=== PATIENT | female | born 1940 | race Caucasian/White ===

== ENCOUNTER 2016-10-27 08:00 | Outpatient (CLI) | payer MEDICARE | END 2016-10-27 08:01 | disposition home or self-care (01) | DX: Z00.00 Encounter for general adult medical examination without abnormal findings (principal); E55.9 Vitamin D deficiency, unspecified; I10 Essential (primary) hypertension; E78.2 Mixed hyperlipidemia; Z79.899 Other long term (current) drug therapy ==

== ENCOUNTER 2016-11-30 13:23 | Outpatient (CLI) | payer MEDICARE | END 2016-11-30 13:24 | disposition home or self-care (01) | DX: E87.6 Hypokalemia (principal); Z79.899 Other long term (current) drug therapy ==

== ENCOUNTER 2016-12-26 13:23 | Outpatient (CLI) | payer MEDICARE | END 2016-12-26 13:24 | disposition home or self-care (01) | DX: E87.6 Hypokalemia (principal); Z79.899 Other long term (current) drug therapy ==

== ENCOUNTER 2017-02-14 06:04 | Day surgery (SDC) | payer MEDICARE ==
[2017-02-14] MEDS ORDERED: LACTATED RINGERS 1,000 ML IV ONE (06:58)
[2017-02-14] MEDS ORDERED: fentaNYL 100 MCG/2 ML VIAL IVP ONE (07:28)
[2017-02-14] MEDS ORDERED: MIDAZOLAM 2 MG/2 ML VIAL IVP ONE (07:28)
[2017-02-14 10:07] VITALS: BP 122/59
== END 2017-02-14 06:05 | disposition home or self-care (01) ==
LOC: SDS 06:04
PROVIDERS: ATTEND Surgery
PROC: 0DBN8ZX Excision of Sigmoid Colon, Via Natural or Artificial Opening Endoscopic, Diagnostic (ICD-10-PCS; 2017-02-14)
PROC: 0DBH8ZX Excision of Cecum, Via Natural or Artificial Opening Endoscopic, Diagnostic (ICD-10-PCS; principal; 2017-02-14 07:30)
DX: R19.5 Other fecal abnormalities (principal); K63.89 Other specified diseases of intestine; D12.0 Benign neoplasm of cecum; K64.8 Other hemorrhoids; I10 Essential (primary) hypertension; Z95.2 Presence of prosthetic heart valve; I48.91 Unspecified atrial fibrillation; Z79.01 Long term (current) use of anticoagulants; Z79.52 Long term (current) use of systemic steroids; Z98.84 Bariatric surgery status; Z88.2 Allergy status to sulfonamides
CPT/HCPCS: 45380; J7120; 88305

== ENCOUNTER 2017-07-20 10:22 | Outpatient (CLI) | payer MEDICARE ==
[2017-07-20 15:42] LABS: ALBUMIN/GLOBULIN RATIO 1.2 (1.0-2.2); BILIRUBIN,TOTAL 0.4 mg/dL (0.2-1.0); CREATININE 0.8 mg/dL (0.4-1.0); POTASSIUM 3.5 mmol/L (3.5-5.0); TOTAL PROTEIN 7.3 g/dL (6.7-8.2)
== END 2017-07-20 10:23 | disposition home or self-care (01) ==
LOC: LAB.R 10:22
PROVIDERS: ATTEND Physician Assistant Medical
DX: Z79.899 Other long term (current) drug therapy (principal)
CPT/HCPCS: 80053

== ENCOUNTER 2018-02-05 08:00 | Outpatient (CLI) | payer MEDICARE ==
[2018-02-05 15:52] LABS: BASOPHILS # (AUTO) 0.1 10^3/uL (0.0-0.1); BASOPHILS % (AUTO) 1.1 %; EOSINOPHILS # (AUTO) 0.2 10^3/uL (0.0-0.7); EOSINOPHILS % (AUTO) 3.7 %; HGB - HEMOGLOBIN 13.6 g/dL (12.0-16.0); LYMPHOCYTES # (AUTO) 0.8 10^3/uL (1.5-3.5); LYMPHOCYTES % (AUTO) 14.5 %; MEAN CORPUSCULAR HEMOGLOBIN 30.6 pg (27.0-31.0); MEAN CORPUSCULAR HGB CONC 33.7 g/dL (32.0-36.0); MEAN CORPUSCULAR VOLUME 90.7 fL (81.0-99.0); MEAN PLATELET VOLUME 9.1 fL (7.9-10.8); MONOCYTES # (AUTO) 0.4 10^3/uL (0.0-1.0); MONOCYTES % (AUTO) 6.8 %; NEUTROPHILS % (AUTO) 73.9 %; PLT - PLATELET COUNT 160 10^3/uL (130-450); RED BLOOD COUNT 4.44 10^6/uL (4.20-5.40); RED CELL DISTRIBUTION WIDTH 12.7 % (12.0-15.0); WHITE BLOOD COUNT 5.4 x10^3/uL (4.8-10.8)
[2018-02-05 16:01] LABS: ALBUMIN 4.1 g/dL (3.2-5.5); ALBUMIN/GLOBULIN RATIO 1.2 (1.0-2.2); ALKALINE PHOSPHATASE 59 IU/L (42-121); ALT ALANINE AMINOTRANSFERASE 13 IU/L (10-60); AST ASPARTATE AMINOTRANSFERASE 24 IU/L (10-42); BILIRUBIN,TOTAL 0.9 mg/dL (0.2-1.0); BUN - BLOOD UREA NITROGEN 21 mg/dL (6-20); CALCIUM 9.1 mg/dL (8.5-10.3); CARBON DIOXIDE - CO2 29 mmol/L (21-32); CHLORIDE 100 mmol/L (101-111); CHOL/HDL RATIO 3.6 (<4.4); CHOLESTEROL 170 mg/dL; CREATININE 0.8 mg/dL (0.4-1.0); GFR - MDRD 69 (>89); GLUCOSE 91 mg/dL (70-100); HDL CHOLESTEROL 47 mg/dL; LDL CHOLESTEROL,CALCULATED 93 mg/dL; SODIUM 136 mmol/L (135-145); TOTAL PROTEIN 7.6 g/dL (6.7-8.2); VLDL CHOLESTEROL 30 mg/dL
== END 2018-02-05 08:01 ==
LOC: LAB.R 08:00
PROVIDERS: ATTEND Physician Assistant Medical
DX: Z79.899 Other long term (current) drug therapy (principal); E87.6 Hypokalemia; E55.9 Vitamin D deficiency, unspecified; I48.91 Unspecified atrial fibrillation; E78.2 Mixed hyperlipidemia; I10 Essential (primary) hypertension
CPT/HCPCS: 80053; 80061; 82306; 83721; 84443; 85025

== ENCOUNTER 2018-05-06 14:03 | Outpatient (CLI) | payer MEDICARE ==
--- NOTE | 2018-05-08 10:53 | DEXA Report ---
Procedure Date: 05/06/2018 Accession Number: [id number] / [id number] Procedure: DEX - Dexa Spine and/or Hip CPT Code: FULL RESULT: EXAM: Dexa Forearm, Dexa Spine and/or Hip DATE: 05/06/2018 3:23 PM CLINICAL HISTORY: ASYMPTOMATIC MENOPAUSAL STATE TECHNIQUE: Dual energy x-ray absorptiometry (DXA) was performed on a Genasys System. Regions measured are the AP Spine, femoral neck, and if needed forearm. COMPARISON: None. In accordance with the International Society for Clinical Densitometry (ISCD) guidelines, data from previous exams may be reanalyzed using current recommendations and techniques. This is done to allow a more accurate basis for comparison with the current study. FINDINGS: The data for the hip is as follows: BMD (g/cm/cm) T-SCORE Z-SCORE REGION Neck 0.685 -2.5 -1.0 TOTAL 0.796 -1.7 -0.4 NOTE: The femoral neck or total proximal femur, whichever is lowest, is used for classification. The data for the left forearm is as follows: BMD (g/cm/cm) T-SCORE Z-SCORE REGION 1/3 0.682 -2.2 0.4 NOTE: The 33% radius of the nondominant forearm is used for classification. IMPRESSION: THE WHO CLASSIFICATION BASED ON THE INTERNATIONAL REFERENCE STANDARD IS OSTEOPENIA. THE FRACTURE RISK IS INCREASED. RECOMMENDATION: Patients with diagnosis of osteoporosis or osteopenia should have regular bone mineral density assessment. For those eligible for Medicare, routine testing is allowed once every 2 years. Testing frequency can be increased for patients who have rapidly progressing disease or for those who are receiving medical therapy to restore bone mass. COMMENT: World Health Organization (WHO) definitions for osteoporosis and osteopenia: NORMAL BMD: T-score at -1.0 or higher, fracture risk is low OSTEOPENIA BMD: T-score between -1.0 and -2.5, fracture risk is increased. OSTEOPOROSIS BMD: T-score at -2.5 or lower, fracture risk is high. National Osteoporosis Foundation recommends: 1. Obtain adequate dietary calcium (at least 1200 mg per day) and vitamin D (400-800 international units per day). 2. Participate, as appropriate, in regular weightbearing and muscle-strengthening exercise. 3. Avoid tobacco use and reduce alcohol and caffeine intake. 4. For more detailed information see the website at www.NOF.org.
== END 2018-05-06 14:04 | disposition home or self-care (01) ==
LOC: DI 14:03
PROVIDERS: ATTEND Physician Assistant Medical
DX: M85.89 Other specified disorders of bone density and structure, multiple sites (principal); Z78.0 Asymptomatic menopausal state
CPT/HCPCS: 77080; 77081

== ENCOUNTER 2018-06-11 15:18 | Outpatient (CLI) | payer MEDICARE ==
--- NOTE | 2018-06-12 11:11 | Mammography Report ---
Reason: SCREENING MAMMO Procedure Date: 06/11/2018 Accession Number: [id number] / [id number] Procedure: SCOTT - Screening Mammo Dig Bilat CPT Code: FULL RESULT: EXAM: Screening Mammo Dig Bilat DATE: 06/11/2018 3:48 PM CLINICAL HISTORY: 77-year-old female presents for screening mammogram. TECHNIQUE: Bilateral CC and MLO views were obtained. COMPARISON: 11/16/2015, 10/15/2012, 07/04/2011, 08/16/2009. FINDINGS: The breasts demonstrate scattered fibroglandular densities bilaterally. Typically benign vascular calcifications are seen in the bilateral breasts. No suspicious masses, clustered microcalcifications, or regions of architectural distortion are identified. IMPRESSION: Benign findings RECOMMENDATION: Routine annual screening unless otherwise clinically indicated. BIRADS CATEGORY 2: Benign findings STANDARD QUALIFYING STATEMENTS: 1. This examination was reviewed without the aid of Computer-Aided Detection (CAD). 2. A negative or benign imaging report should not delay biopsy if clinically suspicious findings are present. Consider surgical consultation if warrented. More than 5% of cancers are not identified by imaging. 3. Dense breasts may obscure an underlying neoplasm.
== END 2018-06-11 15:19 | disposition home or self-care (01) ==
LOC: DI 15:18
PROVIDERS: ATTEND Physician Assistant Medical
DX: Z12.31 Encounter for screening mammogram for malignant neoplasm of breast (principal)
CPT/HCPCS: 77067

== ENCOUNTER 2018-06-27 15:27 | Outpatient (CLI) | payer MEDICARE ==
[2018-06-27 20:39] LABS: ALBUMIN 3.9 g/dL (3.2-5.5); ALBUMIN/GLOBULIN RATIO 1.1 (1.0-2.2); BILIRUBIN,TOTAL 0.8 mg/dL (0.2-1.0); CALCIUM 9.1 mg/dL (8.5-10.3); CREATININE 0.8 mg/dL (0.4-1.0); TOTAL PROTEIN 7.5 g/dL (6.7-8.2)
[2018-06-29 13:48] LABS: HEPATITIS B SURFACE ANTIGEN NON-REACTIVE (NON-REACTIVE)
[2018-06-29 14:01] LABS: HEPATITIS C ANTIBODY NON-REACTIVE (NON-REACTIVE)
== END 2018-06-27 15:28 | disposition home or self-care (01) ==
LOC: LAB.R 15:27
PROVIDERS: ATTEND Physician Assistant Medical
DX: Z13.818 Encounter for screening for other digestive system disorders (principal); Z79.899 Other long term (current) drug therapy
CPT/HCPCS: 80053; 86704; 86803; 87340

== ENCOUNTER 2019-02-20 16:40 | Outpatient (CLI) | payer MEDICARE ==
[2019-02-20 17:03] LABS: BASOPHILS % (AUTO) 0.9 %; EOSINOPHILS # (AUTO) 0.1 10^3/uL (0.0-0.7); HGB - HEMOGLOBIN 12.6 g/dL (12.0-16.0); LYMPHOCYTES # (AUTO) 0.7 10^3/uL (1.5-3.5); LYMPHOCYTES % (AUTO) 15.3 %; MEAN CORPUSCULAR HGB CONC 32.3 g/dL (32.0-36.0); MEAN PLATELET VOLUME 7.9 fL (7.9-10.8); MONOCYTES # (AUTO) 0.2 10^3/uL (0.0-1.0); MONOCYTES % (AUTO) 4.4 %; NEUTROPHILS # (AUTO) 3.7 10^3/uL (1.5-6.6); NEUTROPHILS % (AUTO) 77.4 %; PLT - PLATELET COUNT 188 10^3/uL (130-450); RED BLOOD COUNT 4.34 10^6/uL (4.20-5.40); RED CELL DISTRIBUTION WIDTH 13.1 % (12.0-15.0); WHITE BLOOD COUNT 4.8 x10^3/uL (4.8-10.8)
[2019-02-20 17:29] LABS: ALBUMIN 3.9 g/dL (3.2-5.5); ALBUMIN/GLOBULIN RATIO 1.2 (1.0-2.2); ALKALINE PHOSPHATASE 78 IU/L (42-121); ALT ALANINE AMINOTRANSFERASE 12 IU/L (10-60); AST ASPARTATE AMINOTRANSFERASE 20 IU/L (10-42); BILIRUBIN,TOTAL 0.8 mg/dL (0.2-1.0); BUN - BLOOD UREA NITROGEN 16 mg/dL (6-20); CALCIUM 8.8 mg/dL (8.5-10.3); CARBON DIOXIDE - CO2 25 mmol/L (21-32); CHLORIDE 105 mmol/L (101-111); CHOL/HDL RATIO 2.7 (<4.4); CHOLESTEROL 152 mg/dL; CREATININE 0.6 mg/dL (0.4-1.0); GFR - MDRD 96 (>89); GLUCOSE 122 mg/dL (70-100); HDL CHOLESTEROL 56 mg/dL; LDL CHOLESTEROL,CALCULATED 81 mg/dL; LDL/HDL RATIO 1.4 (<4.4); SODIUM 138 mmol/L (135-145); TOTAL PROTEIN 7.2 g/dL (6.7-8.2); VLDL CHOLESTEROL 15 mg/dL
[2019-02-20 18:38] LABS: THYROID STIMULATING HORMONE 0.53 uIU/mL (0.34-5.60)
[2019-02-20 18:40] LABS: FREE T4 (FREE THYROXINE) 0.9 ng/dL (0.58-1.64)
== END 2019-02-20 16:41 | disposition home or self-care (01) ==
LOC: LAB 16:40
PROVIDERS: ATTEND Nurse Practitioner
DX: E87.6 Hypokalemia (principal); E55.9 Vitamin D deficiency, unspecified; I48.91 Unspecified atrial fibrillation; E78.2 Mixed hyperlipidemia; I10 Essential (primary) hypertension
CPT/HCPCS: 36415; 80053; 80061; 82306; 83721; 84439; 84443; 85025

== ENCOUNTER 2019-04-17 13:48 | Outpatient (CLI) | payer MEDICARE | END 2019-04-17 13:49 | disposition short-term general hospital (02) | LOC: EMS 13:48 | PROVIDERS: ATTEND Surgery | DX: R06.02 Shortness of breath (principal); R53.83 Other fatigue; R05 Cough | CPT/HCPCS: A0425; A0427; A0888 ==

== ENCOUNTER 2019-04-22 08:00 | Outpatient (CLI) | payer MEDICARE ==
[2019-04-22 18:40] LABS: CALCIUM 9.2 mg/dL (8.5-10.3); CREATININE 0.8 mg/dL (0.4-1.0); MAGNESIUM 1.9 mg/dL (1.7-2.8)
== END 2019-04-22 08:01 | disposition home or self-care (01) ==
LOC: LAB.N 08:00
PROVIDERS: ATTEND Internal Medicine
DX: R35.8 Other polyuria (principal)
CPT/HCPCS: 36415; 80048; 83735

== ENCOUNTER 2019-05-06 14:49 | Outpatient (CLI) | payer MEDICARE ==
--- NOTE | 2019-05-07 14:00 | XRAY Report ---
Reason: COMMUNITY ACQUIRED PNEUMONIA Procedure Date: 05/06/2019 Accession Number: [id number] / [id number] Procedure: XRN - Chest 2 View X-Ray CPT Code: 89611 FULL RESULT: EXAM: CHEST RADIOGRAPHY EXAM DATE: 05/06/2019 03:02 PM. CLINICAL HISTORY: Community acquired pneumonia. COMPARISON: CHEST 2 VIEW PA/LAT 09/20/2016 5:03 PM CHEST W/ 09/12/2016 3:44 PM. TECHNIQUE: 2 views. FINDINGS: Lungs/Pleura: Dense left lung base opacity with adjacent moderate effusion. Right lung clear. No pneumothorax. Mediastinum: Heart and mediastinal contours are unremarkable. Other: Previous median sternotomy and valve replacement. Small proximal left humeral enchondroma. IMPRESSION: Moderate left pleural effusion with adjacent airspace opacity -- could reflect pneumonia and parapneumonic effusion. Consider diagnostic/therapeutic thoracentesis for confirmation. Follow-up necessary to ensure clearance and to exclude malignancy as cause of unilateral effusion. RADIA
== END 2019-05-06 14:50 | disposition home or self-care (01) ==
LOC: DI.N 14:49
PROVIDERS: ATTEND Nurse Practitioner
DX: J18.9 Pneumonia, unspecified organism (principal)
CPT/HCPCS: 71046

== ENCOUNTER 2019-05-21 13:30 | Outpatient (CLI) | payer MEDICARE ==
[2019-05-21 18:50] LABS: HGB - HEMOGLOBIN 11.9 g/dL (12.0-16.0); MEAN CORPUSCULAR HEMOGLOBIN 28.9 pg (27.0-31.0); MEAN CORPUSCULAR HGB CONC 31.6 g/dL (32.0-36.0); MEAN CORPUSCULAR VOLUME 91.5 fL (81.0-99.0); MEAN PLATELET VOLUME 10.8 fL (7.9-10.8); RED BLOOD COUNT 4.12 10^6/uL (4.20-5.40); RED CELL DISTRIBUTION WIDTH 13.7 % (12.0-15.0); WHITE BLOOD COUNT 5.6 x10^3/uL (4.8-10.8)
[2019-05-21 18:54] LABS: PARTIAL THROMBOPLASTIN TIME 36.6 secs (24.9-33.3)
[2019-05-21 19:20] LABS: INR 1.2 (0.8-1.2); PT - PROTHROMBIN TIME 13.8 secs (9.9-12.6)
== END 2019-05-21 23:59 | disposition home or self-care (01) ==
LOC: LAB.N 13:30
PROVIDERS: ATTEND Nurse Practitioner
DX: R91.8 Other nonspecific abnormal finding of lung field (principal); I48.91 Unspecified atrial fibrillation
CPT/HCPCS: 36415; 85027; 85610; 85730

== ENCOUNTER 2019-06-04 08:00 | Outpatient (CLI) | payer MEDICARE ==
[2019-06-04 18:54] LABS: BASOPHILS % (AUTO) 0.5 %; EOSINOPHILS # (AUTO) 0.1 10^3/uL (0.0-0.7); HGB - HEMOGLOBIN 11.6 g/dL (12.0-16.0); LYMPHOCYTES # (AUTO) 0.7 10^3/uL (1.5-3.5); LYMPHOCYTES % (AUTO) 11.3 %; MEAN CORPUSCULAR HEMOGLOBIN 27.6 pg (27.0-31.0); MEAN CORPUSCULAR HGB CONC 30.4 g/dL (32.0-36.0); MEAN PLATELET VOLUME 10.8 fL (7.9-10.8); MONOCYTES # (AUTO) 0.3 10^3/uL (0.0-1.0); MONOCYTES % (AUTO) 5.6 %; NEUTROPHILS # (AUTO) 4.8 10^3/uL (1.5-6.6); NEUTROPHILS % (AUTO) 80.4 %; PLT - PLATELET COUNT 232 10^3/uL (130-450); RED CELL DISTRIBUTION WIDTH 13.6 % (12.0-15.0); WHITE BLOOD COUNT 5.9 x10^3/uL (4.8-10.8)
[2019-06-04 19:06] LABS: CALCIUM 9.2 mg/dL (8.5-10.3); CREATININE 0.7 mg/dL (0.4-1.0)
[2019-06-04 19:37] LABS: THYROID STIMULATING HORMONE 0.76 uIU/mL (0.34-5.60)
[2019-06-04 19:39] LABS: FREE T4 (FREE THYROXINE) 0.9 ng/dL (0.58-1.64)
== END 2019-06-04 11:50 | disposition home or self-care (01) ==
LOC: LAB.N 08:00
PROVIDERS: ATTEND Family Medicine
DX: J90 Pleural effusion, not elsewhere classified (principal); I48.91 Unspecified atrial fibrillation; J18.9 Pneumonia, unspecified organism; Z79.51 Long term (current) use of inhaled steroids; Z79.52 Long term (current) use of systemic steroids
CPT/HCPCS: 36415; 80048; 83880; 84439; 84443; 84481; 85025

== ENCOUNTER 2019-06-20 12:17 | Outpatient (CLI) | payer MEDICARE ==
[2019-06-20 19:13] LABS: CREATININE 0.7 mg/dL (0.4-1.0)
== END 2019-06-20 23:59 | disposition home or self-care (01) ==
LOC: LAB.N 12:17
PROVIDERS: ATTEND Student in an Organized Health Care Education/Training Program
DX: J80 Acute respiratory distress syndrome (principal)
CPT/HCPCS: 36415; 82565

== ENCOUNTER 2019-08-20 13:38 | Outpatient (CLI) | payer MEDICARE ==
[2019-08-20 18:38] LABS: BASOPHILS % (AUTO) 0.7 %; EOSINOPHILS # (AUTO) 0.4 10^3/uL (0.0-0.7); EOSINOPHILS % (AUTO) 6.3 %; HGB - HEMOGLOBIN 9.7 g/dL (12.0-16.0); LYMPHOCYTES # (AUTO) 0.7 10^3/uL (1.5-3.5); LYMPHOCYTES % (AUTO) 11.9 %; MEAN CORPUSCULAR HEMOGLOBIN 26.2 pg (27.0-31.0); MEAN CORPUSCULAR HGB CONC 29.6 g/dL (32.0-36.0); MEAN CORPUSCULAR VOLUME 88.6 fL (81.0-99.0); MEAN PLATELET VOLUME 10.4 fL (7.9-10.8); MONOCYTES # (AUTO) 0.5 10^3/uL (0.0-1.0); MONOCYTES % (AUTO) 7.7 %; NEUTROPHILS # (AUTO) 4.3 10^3/uL (1.5-6.6); NEUTROPHILS % (AUTO) 73.2 %; PLT - PLATELET COUNT 230 10^3/uL (130-450); RED CELL DISTRIBUTION WIDTH 14.3 % (12.0-15.0); WHITE BLOOD COUNT 5.9 x10^3/uL (4.8-10.8)
[2019-08-20 19:07] LABS: % IRON SATURATION 9 % (20-50); IRON 29 ug/dL (28-170); TOTAL IRON BINDING CAPACITY 340 ug/dL (250-450); TRANSFERRIN 243 mg/dL (192-382)
== END 2019-08-20 23:59 | disposition home or self-care (01) ==
LOC: LAB.N 13:38
PROVIDERS: ATTEND Nurse Practitioner
DX: R53.81 Other malaise (principal); R53.83 Other fatigue
CPT/HCPCS: 36415; 82728; 83540; 84466; 85025; 85045

== ENCOUNTER 2020-05-26 13:15 | Outpatient (CLI) | payer MEDICARE ==
[2020-05-26 20:10] LABS: HGB - HEMOGLOBIN 12.8 g/dL (12.0-16.0)
[2020-05-26 20:23] LABS: % IRON SATURATION 28 % (20-50); IRON 89 ug/dL (28-170); TOTAL IRON BINDING CAPACITY 321 ug/dL (250-450); TRANSFERRIN 229 mg/dL (192-382)
== END 2020-05-26 13:16 | disposition home or self-care (01) ==
LOC: LAB.S 13:15
PROVIDERS: ATTEND Internal Medicine Gastroenterology
DX: Z86.2 Personal history of diseases of the blood and blood-forming organs and certain disorders involving the immune mechanism (principal)
CPT/HCPCS: 36415; 83540; 84466; 85014; 85018

== ENCOUNTER 2020-09-14 13:59 | Outpatient (CLI) | payer MEDICARE ==
[2020-09-14 19:45] LABS: BASOPHILS # (AUTO) 0.1 10^3/uL (0.0-0.1); BASOPHILS % (AUTO) 0.8 %; EOSINOPHILS # (AUTO) 0.3 10^3/uL (0.0-0.7); EOSINOPHILS % (AUTO) 4.6 %; HGB - HEMOGLOBIN 11.4 g/dL (12.0-16.0); LYMPHOCYTES # (AUTO) 0.8 10^3/uL (1.5-3.5); MEAN CORPUSCULAR HEMOGLOBIN 27.9 pg (27.0-31.0); MEAN CORPUSCULAR HGB CONC 29.8 g/dL (32.0-36.0); MEAN CORPUSCULAR VOLUME 93.6 fL (81.0-99.0); MEAN PLATELET VOLUME 10.8 fL (7.9-10.8); MONOCYTES # (AUTO) 0.5 10^3/uL (0.0-1.0); MONOCYTES % (AUTO) 7.8 %; NEUTROPHILS # (AUTO) 4.5 10^3/uL (1.5-6.6); NEUTROPHILS % (AUTO) 73.6 %; PLT - PLATELET COUNT 246 10^3/uL (130-450); RED BLOOD COUNT 4.09 10^6/uL (4.20-5.40); RED CELL DISTRIBUTION WIDTH 12.2 % (12.0-15.0); WHITE BLOOD COUNT 6.2 x10^3/uL (4.8-10.8)
== END 2020-09-14 14:00 | disposition home or self-care (01) ==
LOC: LAB.S 13:59
PROVIDERS: ATTEND Nurse Practitioner
DX: D50.9 Iron deficiency anemia, unspecified (principal)
CPT/HCPCS: 36415; 85025

== ENCOUNTER 2020-12-22 08:00 | Outpatient (CLI) | payer MEDICARE ==
[2020-12-22 18:12] LABS: BASOPHILS % (AUTO) 0.7 %; EOSINOPHILS # (AUTO) 0.4 10^3/uL (0.0-0.7); EOSINOPHILS % (AUTO) 7.3 %; HCT - HEMATOCRIT 30.4 % (37.0-47.0); HGB - HEMOGLOBIN 9.1 g/dL (12.0-16.0); LYMPHOCYTES # (AUTO) 0.8 10^3/uL (1.5-3.5); LYMPHOCYTES % (AUTO) 14.7 %; MEAN CORPUSCULAR HEMOGLOBIN 25.2 pg (27.0-31.0); MEAN CORPUSCULAR HGB CONC 29.9 g/dL (32.0-36.0); MEAN CORPUSCULAR VOLUME 84.2 fL (81.0-99.0); MONOCYTES # (AUTO) 0.5 10^3/uL (0.0-1.0); MONOCYTES % (AUTO) 8.4 %; NEUTROPHILS # (AUTO) 3.7 10^3/uL (1.5-6.6); NEUTROPHILS % (AUTO) 68.7 %; PLT - PLATELET COUNT 262 10^3/uL (130-450); RED BLOOD COUNT 3.61 10^6/uL (4.20-5.40); RED CELL DISTRIBUTION WIDTH 15.4 % (12.0-15.0); WHITE BLOOD COUNT 5.5 x10^3/uL (4.8-10.8)
[2020-12-22 18:53] LABS: % IRON SATURATION 2 % (20-50); ALBUMIN 3.2 g/dL (3.2-5.5); ALBUMIN/GLOBULIN RATIO 0.7 (1.0-2.2); ALKALINE PHOSPHATASE 57 IU/L (42-121); ALT ALANINE AMINOTRANSFERASE < 10 IU/L (10-60); AST ASPARTATE AMINOTRANSFERASE 16 IU/L (10-42); BILIRUBIN,TOTAL 0.7 mg/dL (0.2-1.0); BUN - BLOOD UREA NITROGEN 19 mg/dL (6-20); CALCIUM 9.2 mg/dL (8.5-10.3); CARBON DIOXIDE - CO2 32 mmol/L (21-32); CHLORIDE 98 mmol/L (101-111); CHOL/HDL RATIO 4.3 (<4.4); CHOLESTEROL 108 mg/dL; CREATININE 0.8 mg/dL (0.4-1.0); GFR - MDRD 69 (>89); GLUCOSE 115 mg/dL (70-100); HDL CHOLESTEROL 25 mg/dL; IRON 7 ug/dL (28-170); LDL CHOLESTEROL,CALCULATED 63 mg/dL; LDL/HDL RATIO 2.5 (<4.4); POTASSIUM 3.5 mmol/L (3.5-5.0); SODIUM 137 mmol/L (135-145); THYROID STIMULATING HORMONE 0.68 uIU/mL (0.34-5.60); TOTAL IRON BINDING CAPACITY 399 ug/dL (250-450); TOTAL PROTEIN 7.7 g/dL (6.7-8.2); TRANSFERRIN 285 mg/dL (192-382); TRIGLYCERIDES 98 mg/dL; VLDL CHOLESTEROL 20 mg/dL
[2020-12-22 18:59] LABS: FERRITIN 52.8 ng/mL (11.0-306.8)
== END 2020-12-22 23:59 | disposition home or self-care (01) ==
LOC: LAB.WCP 08:00
PROVIDERS: ATTEND Nurse Practitioner
DX: E87.1 Hypo-osmolality and hyponatremia (principal); D50.9 Iron deficiency anemia, unspecified; M30.0 Polyarteritis nodosa; E78.2 Mixed hyperlipidemia; E55.9 Vitamin D deficiency, unspecified; I10 Essential (primary) hypertension; E66.9 Obesity, unspecified
CPT/HCPCS: 36415; 80053; 80061; 82306; 82728; 83540; 83721; 84443; 84466; 85025

== ENCOUNTER 2021-02-04 15:59 | Emergency (ER) | payer MEDICARE ==
--- NOTE | 2021-02-04 16:24 | ED Physician Documentation ---
History of Present Illness - Stated complaint Stated Complaint: COLD,CLAMY,NAUSEA - Chief complaint Chief Complaint: General - History obtained from History obtained from: Patient, Family - Additonal information Additional information: This is a luiz 80-year-old woman with history of aortic valve replacement, porcine, history of CHF and A. fib on Pradaxa who went [place] [facility] [place] to have an iron infusion. Is the first time she is had that done. She cannot tolerate oral iron anymore because of side effects specifically constipation. [place] through the iron infusion she started to feel nauseous and a rapid response was called. She was noted to be hypoxemic and was referred here for further evaluation and treatment. She says she is been short of breath to weeks or months. Denies chest pain. Does not wear oxygen at home. She has pedal edema, but not worse than normal. Review of Systems Ten Systems: 10 systems reviewed and negative Constitutional: reports: Fatigue Cardiac: denies: Chest pain / pressure Respiratory: reports: Dyspnea. denies: Cough PD PAST MEDICAL HISTORY - Past Medical History Cardiovascular: Hypertension, Atrial fibrillation Respiratory: None Endocrine/Autoimmune: Other GI: Chronic constipation, Other : None HEENT: None Musculoskeletal: None Derm: None, Eczema - Past Surgical History Past Surgical History: Yes General: Gastric surgery, Colonoscopy Cardiovascular: Valve replacement HEENT: Cataracts, Tonsil/Adenoidectomy - Present Medications Home Medications: Ambulatory Orders Medication Instructions Recorded Confirmed Carvedilol 12.5 mg PO BID 10/23/15 02/14/17 Furosemide 40 mg PO BID 10/23/15 02/14/17 Hydroxychloroquine [Plaquenil] 200 mg PO DAILY 10/23/15 02/14/17 Potassium Chloride 20 meq PO DAILY 10/23/15 02/14/17 Prednisone 5 mg PO DAILY 10/23/15 02/14/17 traMADol [Ultram] 50 mg PO DAILY PRN 10/23/15 02/14/17 Ascorbic Acid [Vitamin C] 500 mg PO DAILY 02/13/17 02/14/17 Cholecalciferol (Vitamin D3) 2,000 unit PO DAILY 02/13/17 02/14/17 [Vitamin D] Linaclotide [Linzess] 145 mcg PO ONCE PRN 02/13/17 02/14/17 Multivitamin [Multivitamins] 1 each PO DAILY 02/13/17 02/14/17 Ellsworth-3 Fatty Acids/Fish Oil [Fish 1 each PO DAILY 02/13/17 02/14/17 Oil 1,000 mg Softgel] Dabigatran Etexilate Mesylate 150 mg PO BID 02/04/21 02/04/21 [Pradaxa] - Allergies Allergies/Adverse Reactions: Allergies Allergy/AdvReac Type Severity Reaction Status Date / Time oxycodone Allergy Unknown Verified 10/23/15 11:46 amiodarone AdvReac Nausea Verified 02/04/21 16:28 dicloxacillin AdvReac Nausea Verified 02/04/21 16:28 diltiazem [From Cartia XT] AdvReac Unknown Verified 02/04/21 16:28 lubiprostone [From Amitiza] AdvReac Unknown Verified 02/04/21 16:28 metoprolol AdvReac Nausea Verified 02/04/21 16:28 sulfamethoxazole AdvReac Nausea Verified 02/04/21 16:28 [From Bactrim] trimethoprim [From Bactrim] AdvReac Nausea Verified 02/04/21 16:28 - Social History Does the pt smoke?: No Smoking Status: Former smoker Does the pt drink ETOH?: No Does the pt have substance abuse?: No - Immunizations Immunizations are current?: Yes PD ED PE NORMAL - Vitals Vital signs reviewed: Yes - General General: Alert and oriented X 3, No acute distress - HEENT HEENT: PERRL, EOMI - Neck Neck: Supple, no meningeal sign, No bony TTP - Cardiac Cardiac: Other (Irregularly irregular with closing click but no murmur) - Respiratory Respiratory: No respiratory distress, Other (Diminished both bases) - Abdomen Abdomen: Soft, Non tender - Rectal Rectal: Other (Brown stool, sent for guaiac) - Back Back: No CVA TTP, No spinal TTP - Derm Derm: Normal color, Warm and dry - Extremities Extremities: Other (3+ bilateral pitting pedal edema with venous stasis changes) - Neuro Neuro: Alert and oriented X 3, Normal speech Results - Vitals Vitals: Vital Signs - 24 hr 02/04/21 02/04/21 02/04/21 16:01 16:32 17:00 Temperature 36 C L Heart Rate 98 90 100 Respiratory 26 H 26 H 26 H Rate Blood Pressure 93/69 99/55 L 94/47 L O2 Saturation 97 100 99 02/04/21 02/04/21 17:15 17:40 Temperature Heart Rate 99 Respiratory 26 H Rate Blood Pressure 95/58 L O2 Saturation 98 97 Oxygen O2 Source Room air - EKG (time done) 1628 Rate: Rate (enter#) (101) Rhythm: Atrial fibrillation Bertrand: Normal Intervals: Prolonged QT QRS: Normal Ischemia: Non specific changes Computer interpretation: Agree with computer - Labs Labs: Microbiology 02/04/21 17:10 Occult Blood - Final Stool Laboratory Tests 02/04/21 02/04/21 02/04/21 16:30 16:30 16:30 WBC 3.5 L RBC 3.48 L Hgb 8.5 L Hct 28.8 L MCV 82.8 MCH 24.4 L MCHC 29.5 L RDW 15.6 H Plt Count 192 MPV 9.5 Neut # (Auto) 3.1 Lymph # (Auto) 0.2 L [facility] # (Auto) 0.0 Eos # (Auto) 0.0 Baso # (Auto) 0.0 Absolute Nucleated RBC 0.00 Nucleated RBC % 0.0 Sodium 134 L Potassium 3.6 Chloride 99 L Carbon Dioxide 27 Anion Gap 8.0 BUN 22 H Creatinine 0.8 Estimated GFR (MDRD) 69 L Glucose 106 H Calcium 9.0 Total Bilirubin 1.2 H AST 16 ALT < 10 L Alkaline Phosphatase 70 Troponin I High Sens 10.0 B-Natriuretic Peptide Total Protein 7.5 Albumin 3.4 Globulin 4.1 Albumin/Globulin Ratio 0.8 L Lipase 31 02/04/21 16:30 WBC RBC Hgb Hct MCV MCH MCHC RDW Plt Count MPV Neut # (Auto) Lymph # (Auto) [facility] # (Auto) Eos # (Auto) Baso # (Auto) Absolute Nucleated RBC Nucleated RBC % Sodium Potassium Chloride Carbon Dioxide Anion Gap BUN Creatinine Estimated GFR (MDRD) Glucose Calcium Total Bilirubin AST ALT Alkaline Phosphatase Troponin I High Sens B-Natriuretic Peptide 409 H Total Protein Albumin Globulin Albumin/Globulin Ratio Lipase PD MEDICAL DECISION MAKING - ED course ED course: 80-year-old woman with history of anemia, CHF, aortic valve replacement presents with transient shortness of breath and hypoxemia that started during an iron infusion [place] the [facility]. Here she required no supplemental oxygen. She appears mildly fluid overloaded. Her hemoglobin is little lower than is usual f or her but she was guaiac negative. Suspect she may be hemodiluted and she is administered IV Lasix here. Single view chest x-ray interpreted contemporaneously by me shows evidence of CHF. Also trace bilateral pleural fluid. Patchy opacities in the lung base suspicious for pneumonia but she has no cough or no elevated white count. Departure - Departure Disposition: Home, Self Care Clinical Impression: CHF (congestive heart failure) Qualifiers: Heart failure type: unspecified Heart failure chronicity: acute on chronic Qualified Code(s): I50.9 - Heart failure, unspecified Condition: Good Record reviewed to determine appropriate education?: Yes Instructions: Heart Failure Dc Comments: Starting tomorrow morning double your Lasix to 80 mg twice a day through Sunday. Go back to her usual dose on Sunday. Return for new or worsening symptoms. Talk with your unarmed security guard about changing your iron infusion formulation.
[2021-02-04 16:36] LABS: BASOPHILS % (AUTO) 0.3 %; EOSINOPHILS % (AUTO) 0.9 %; HCT - HEMATOCRIT 28.8 % (37.0-47.0); HGB - HEMOGLOBIN 8.5 g/dL (12.0-16.0); LYMPHOCYTES # (AUTO) 0.2 10^3/uL (1.5-3.5); LYMPHOCYTES % (AUTO) 6.9 %; MEAN CORPUSCULAR HEMOGLOBIN 24.4 pg (27.0-31.0); MEAN CORPUSCULAR HGB CONC 29.5 g/dL (32.0-36.0); MEAN CORPUSCULAR VOLUME 82.8 fL (81.0-99.0); MEAN PLATELET VOLUME 9.5 fL (7.9-10.8); MONOCYTES % (AUTO) 0.6 %; NEUTROPHILS # (AUTO) 3.1 10^3/uL (1.5-6.6); NEUTROPHILS % (AUTO) 89.3 %; PLT - PLATELET COUNT 192 10^3/uL (130-450); RED BLOOD COUNT 3.48 10^6/uL (4.20-5.40); RED CELL DISTRIBUTION WIDTH 15.6 % (12.0-15.0); WHITE BLOOD COUNT 3.5 x10^3/uL (4.8-10.8)
[2021-02-04 16:50] LABS: ALBUMIN 3.4 g/dL (3.2-5.5); ALBUMIN/GLOBULIN RATIO 0.8 (1.0-2.2); ALKALINE PHOSPHATASE 70 IU/L (42-121); ALT ALANINE AMINOTRANSFERASE < 10 IU/L (10-60); AST ASPARTATE AMINOTRANSFERASE 16 IU/L (10-42); BILIRUBIN,TOTAL 1.2 mg/dL (0.2-1.0); BUN - BLOOD UREA NITROGEN 22 mg/dL (6-20); CARBON DIOXIDE - CO2 27 mmol/L (21-32); CHLORIDE 99 mmol/L (101-111); CREATININE 0.8 mg/dL (0.4-1.0); GFR - MDRD 69 (>89); GLUCOSE 106 mg/dL (70-100); LIPASE 31 U/L (22-51); POTASSIUM 3.6 mmol/L (3.5-5.0); SODIUM 134 mmol/L (135-145); TOTAL PROTEIN 7.5 g/dL (6.7-8.2)
--- NOTE | 2021-02-04 16:59 | XRAY Report ---
PROCEDURE: Chest 1 View X-Ray INDICATIONS: Chest Pain TECHNIQUE: One view of the chest was acquired. COMPARISON: 05/06/2019. FINDINGS: Surgical changes and devices: None. Lungs and pleura: Trace bilateral pleural fluid collections. Patchy opacity noted in the left lung ba se concerning for pneumonia. Cephalization of pulmonary vasculature and interstitial prominence eugenia rning for CHF. Mediastinum: Mediastinal contours appear normal. Heart is enlarged. Bones and chest wall: No suspicious bony lesions. Overlying soft tissues appear unremarkable. IMPRESSION: 1. Trace bilateral pleural fluid collections. 2. Patchy opacities in the left lung base suspicious for pneumonia. 3. Probable CHF. Reviewed by: Yanira Solis MD, PhD on 02/04/2021 4:58 PM PDT Approved by: Yanira Solis MD, PhD on 02/04/2021 4:58 PM PDT Station ID: [id number]
[2021-02-04] MEDS ORDERED: FUROSEMIDE 40 MG/4 ML VIAL IVP STA (17:09)
[2021-02-04 17:40] VITALS: BP 95/58
== END 2021-02-04 17:55 | disposition home or self-care (01) ==
LOC: ED 15:59
DX: I50.9 Heart failure, unspecified (principal); Z87.891 Personal history of nicotine dependence
CPT/HCPCS: 36415; 80053; 82272; 83690; 83880; 84484; 85025; 93005; 96374; 99283

== ENCOUNTER 2021-03-24 15:06 | Outpatient (CLI) | payer MEDICARE ==
[2021-03-24 17:54] LABS: BASOPHILS # (AUTO) 0.1 10^3/uL (0.0-0.1); BASOPHILS % (AUTO) 0.9 %; EOSINOPHILS # (AUTO) 0.4 10^3/uL (0.0-0.7); EOSINOPHILS % (AUTO) 7.7 %; HCT - HEMATOCRIT 35.8 % (37.0-47.0); HGB - HEMOGLOBIN 10.7 g/dL (12.0-16.0); LYMPHOCYTES % (AUTO) 17.6 %; MEAN CORPUSCULAR HEMOGLOBIN 25.8 pg (27.0-31.0); MEAN CORPUSCULAR HGB CONC 29.9 g/dL (32.0-36.0); MEAN CORPUSCULAR VOLUME 86.3 fL (81.0-99.0); MEAN PLATELET VOLUME 10.3 fL (7.9-10.8); MONOCYTES # (AUTO) 0.5 10^3/uL (0.0-1.0); MONOCYTES % (AUTO) 8.7 %; NEUTROPHILS # (AUTO) 3.7 10^3/uL (1.5-6.6); NEUTROPHILS % (AUTO) 64.8 %; PLT - PLATELET COUNT 191 10^3/uL (130-450); RED BLOOD COUNT 4.15 10^6/uL (4.20-5.40); RED CELL DISTRIBUTION WIDTH 17.9 % (12.0-15.0); WHITE BLOOD COUNT 5.8 x10^3/uL (4.8-10.8)
[2021-03-24 18:26] LABS: % IRON SATURATION 12 % (20-50); ALBUMIN 3.5 g/dL (3.2-5.5); ALBUMIN/GLOBULIN RATIO 0.8 (1.0-2.2); ALKALINE PHOSPHATASE 73 IU/L (42-121); ALT ALANINE AMINOTRANSFERASE < 10 IU/L (10-60); AST ASPARTATE AMINOTRANSFERASE 17 IU/L (10-42); BILIRUBIN,TOTAL 0.8 mg/dL (0.2-1.0); BUN - BLOOD UREA NITROGEN 28 mg/dL (6-20); CALCIUM 8.8 mg/dL (8.5-10.3); CARBON DIOXIDE - CO2 30 mmol/L (21-32); CHLORIDE 102 mmol/L (101-111); CREATININE 0.7 mg/dL (0.4-1.0); GFR - MDRD 80 (>89); GLUCOSE 94 mg/dL (70-100); IRON 45 ug/dL (28-170); POTASSIUM 3.8 mmol/L (3.5-5.0); SODIUM 139 mmol/L (135-145); TOTAL IRON BINDING CAPACITY 371 ug/dL (250-450); TOTAL PROTEIN 7.8 g/dL (6.7-8.2); TRANSFERRIN 265 mg/dL (192-382)
[2021-03-24 18:36] LABS: FERRITIN 32.9 ng/mL (11.0-306.8)
== END 2021-03-24 23:59 | disposition home or self-care (01) ==
LOC: LAB.WCP 15:06
PROVIDERS: ATTEND Family Medicine
DX: D50.9 Iron deficiency anemia, unspecified (principal)
CPT/HCPCS: 36415; 80053; 82607; 82728; 82746; 83540; 84466; 85025

== ENCOUNTER 2021-03-29 13:51 | Outpatient (CLI) | payer MEDICARE ==
--- NOTE | 2021-03-29 15:32 | XRAY Report ---
PROCEDURE: Chest 3 View X-Ray INDICATIONS: PLEURAL EFFUSION, L TECHNIQUE: 2 view(s) of the chest plus a single left side down decubitus view. COMPARISON: None. FINDINGS: Surgical changes and devices: Sternotomy wires, prior heart valve replacement.. Lungs and pleura: No pleural effusions or pneumothorax. Lungs are abnormal with interstitial promin ence perhaps reflecting long-standing smoking history. The diaphragms are relatively flattened on the lateral view. There is slight blunting of the posterior costophrenic sulcus bilaterally. This indica jorge likely presence of slight pleural effusions, subpulmonic the left side down decubitus view shows a slight effusion on the left, insufficient for safe thoracentesis Mediastinum: Mediastinal contours are normal. Heart size is normal. Bones and chest wall: No suspicious bony abnormalities. Soft tissues appear unremarkable. IMPRESSION: Suspect long-standing smoking history. Prior heart valve replacement. Slight pleural eff usions posteriorly. Slight free-flowing left subpulmonic effusion. No pneumonia found. Reviewed by: Brayden Alfaro MD on 03/29/2021 3:31 PM PDT Approved by: Brayden Alfaro MD on 03/29/2021 3:31 PM PDT Station ID: [id number]
== END 2021-03-29 13:52 | disposition home or self-care (01) ==
LOC: DI.N 13:51
PROVIDERS: ATTEND Physician Assistant Medical
DX: J90 Pleural effusion, not elsewhere classified (principal)

== ENCOUNTER 2024-03-05 03:04 | Outpatient (CLI) | payer MEDICARE | END 2024-03-05 23:59 | disposition EMS.NT | LOC: EMS 03:04 | DX: Z03.89 Encounter for observation for other suspected diseases and conditions ruled out (principal) ==